=== PATIENT | female | born 1980 | race Caucasian/White ===

== ENCOUNTER 2017-11-27 07:50 | Outpatient (CLI) | payer BC ==
--- NOTE | 2017-11-27 10:04 | CT ---
CT THORAX WITH CONTRAST CT ABDOMEN WITH CONTRAST CT PELVIS WITH CONTRAST: HISTORY: 37-year-old female with R60.9, R00.2, R14.0, R10.9, R35.8, R64.9 Anemia, palpitations, orthopnea, abdomen pain in female, abdominal distention, edema. COMPARISON: Noncontrast CT of abdomen and pelvis, 05-07-17; and CT of chest, abdomen, and pelvis with contrast 12-07. TECHNIQUE: IV iodinated contrast media: 100 ml Isovue 370 Oral contrast media: Redicat II Single phase scans of thorax, abdomen, and pelvis. FINDINGS: Thorax: Lungs are clear. No pleural effusion or pneumonia. Trachea and main bronchi are patent and clear. No cardiomegaly or pericardial effusion. No mediastinal or hilar lymphadenopathy. Normal thoracic aorta. No interval change in the chest since 12-28-12. Abdomen: Suture lines around proximal stomach. Small volume stomach. Normal liver, abdominal aorta, kidneys, a drenals, pancreas and spleen. Large amount of colonic stool. No ascites or pneumoperitoneum identifie d. Pelvis: Normal urinary bladder. A 2.5 x 2.5 x 2.5 cm round cystic lesion in the right presacral spine, indent ing the right side of the rectum. This cystic mass has moderately thin enhancing parham. There is ques tionably a small amount of free fluid versus edema surrounding this. This right pararectal cyst mass has internal density of 28 HU. It was also not present on the CT of 05-07-17. The uterus is absent. N o destructive osseous lesion identified. No small bowel dilation. No signs of acute colonic diverticu litis. IMPRESSION: 1. Status post bariatric surgery. 2. Normal chest. 3. A 2.5 cm round low attenuation cystic mass in the posterior inferior aspect of the pelvis, in the right presacral space, abutting the rectum, of unknown etiology. 4. Status post hysterectomy. AYDEE Prado POS: [facility]
[2017-11-27] MEDS ORDERED: Iopamidol 370 76% 100 ML VIAL ONE (11:31)
== END 2017-11-27 07:51 | disposition home or self-care (01) ==
LOC: CT 07:50
PROVIDERS: ATTEND Family Medicine
DX: D64.9 Anemia, unspecified (principal); R14.0 Abdominal distension (gaseous); R00.2 Palpitations; R10.9 Unspecified abdominal pain; R60.9 Edema, unspecified; R35.8 Other polyuria; N94.89 Other specified conditions associated with female genital organs and menstrual cycle; Z98.84 Bariatric surgery status; Z90.710 Acquired absence of both cervix and uterus
CPT/HCPCS: 71260; 74177

== ENCOUNTER 2017-12-08 12:52 | Outpatient (CLI) | payer BC ==
--- NOTE | 2017-12-08 14:56 | MRI ---
MRI PELVIS WITHOUT AND WITH CONTRAST: Comparison: CT abdomen/pelvis 11-27-17 History: Right pelvis mass seen on prior CT. Please evaluate further. Technique: Multiplanar, multisequence MRI images were obtained of the pelvis without and with IV cont rast. FINDINGS: The patient's uterus has been removed. Both ovaries remain. One of the ovaries is along the left late ral pelvic sidewall. The other ovary lies lower in the posterior pelvis and is in the exact location where the previously seen hypodensity was present on CT. Normal follicles are seen within both ovarie s. The previously seen hypodense mass in the region of the right ovary on the prior CT is no longer p resent and likely represented a physiologic follicle which has resolved. No suspicious mass is seen i n the pelvis. A small amount of free fluid is seen in the pelvis. The urinary bladder is unremarkable. No marrow signal abnormality is present. No abnormal enhancement is seen. No enlarged pelvic or inguinal lymph nodes are seen. IMPRESSION: Previously seen right pelvic mass representing a physiologic follicle in the right ovary. POS: [facility]
== END 2017-12-08 12:53 | disposition home or self-care (01) ==
LOC: SCSMRI 12:52
PROVIDERS: ATTEND Family Medicine
DX: R19.00 Intra-abdominal and pelvic swelling, mass and lump, unspecified site (principal)
CPT/HCPCS: 72197

== ENCOUNTER 2018-03-08 07:49 | Outpatient (CLI) | payer OTHER ==
--- NOTE | 2018-03-08 09:39 | RAD ---
THORACIC SPINE: Date: 03/08/18 HISTORY: Back pain. Comparison made to thoracic spine of 03/15/13. FINDINGS: Thoracic vertebra maintain normal height and alignment. No compression deformity seen. Disc spaces ar e preserved. Minimal degenerative change. IMPRESSION: Thoracic spine appears unremarkable and unchanged from prior exam. POS: [facility]
--- NOTE | 2018-03-08 09:45 | RAD ---
LUMBAR SPINE 3 VIEWS: Date: 03/08/18 HISTORY: Back pain. FINDINGS: Lumbar vertebra maintain normal height and alignment. There is mild loss of disc space at L1-2 and mi ld degenerative changes at this level. The other lumbar vertebra maintain normal height and alignment. The other disc spaces are preserved. IMPRESSION: Mild loss of disc space and degenerative change at L1-2. POS: [facility]
--- NOTE | 2018-03-08 09:46 | CT ---
CT LUMBAR SPINE: Multiple axial tomograms are obtained through the lumbar spine with multiplanar reconstruction. INDICATION: Back pain. FINDINGS: The lumbar vertebrae maintain normal height and alignment. There are mild degenerative changes noted at the L1-2 disk space. Mild loss of disk height at this level and mild degenerative spurring from the anterior superior corner of the L2 vertebra is noted. Minimal spurring from the anterior inferio r corner of the L1 vertebra is present. No evidence of compression or fracture. The L3, L4, and L5 vertebrae appear unremarkable and maintain normal height and alignment. The disk spaces are preserve d. At L1-2 disk level, there is no evidence of disk bulge or protrusion. No central canal or foraminal stenosis. At L2-3, no significant disk bulge or protrusion. No central canal or foraminal stenosis. At L3-4, a mild disk bulge abuts the anterior thecal sac. No significant central canal or foraminal stenosis. At L4-5, mild disk bulge abuts and mildly flattens the anterior thecal sac. Mild facet hypertrophy. No significant central canal or foraminal stenosis. At L5-S1, mild disk bulge centrally. No significant central canal or foraminal stenosis. No evidence of spondylolisthesis or spondylosis. IMPRESSION: There are degenerative changes noted at the L1-[address] lumbar spine otherwise unremarkable. POS: [facility]
== END 2018-03-08 07:50 | disposition home or self-care (01) ==
LOC: SCSCT 07:49
PROVIDERS: ATTEND Physical Medicine & Rehabilitation
DX: M51.36 Other intervertebral disc degeneration, lumbar region (principal); G89.4 Chronic pain syndrome; M47.896 Other spondylosis, lumbar region
CPT/HCPCS: 72072; 72100; 72131

== ENCOUNTER 2019-06-01 11:21 | Emergency (ER) | payer BC, OTHER ==
--- NOTE | 2019-06-01 12:04 | RAD ---
3 views left shoulder: 06/01/2019 COMPARISON: None HISTORY: Pain FINDINGS: No fracture or dislocation. No radiopaque foreign body or subcutaneous gas. IMPRESSION: No acute findings.
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
--- NOTE | 2019-06-01 12:07 | RAD ---
2 views of the lumbar spine: 06/01/2019 COMPARISON: 03/08/2018 HISTORY: Trauma FINDINGS: Lumbar pedicles appear intact on frontal imaging. The lateral examination demonstrates norm al vertebral body height and alignment. No anterolisthesis or retrolisthesis. No acute fracture identified. Mild lower lumbar spine facet hypertrophy at L4-5 and L5-S1 noted. There is mild irregula rity involving the superior endplate of the L2 vertebral body, as seen on the prior examination. IMPRESSION: Chronic findings as detailed above. No acute findings.
== END 2019-06-01 12:17 | disposition home or self-care (01) ==
LOC: SCSER 11:21
DX: S39.012A Strain of muscle, fascia and tendon of lower back, initial encounter (principal); S46.912A Strain of unspecified muscle, fascia and tendon at shoulder and upper arm level, left arm, initial encounter; S76.012A Strain of muscle, fascia and tendon of left hip, initial encounter; G43.909 Migraine, unspecified, not intractable, without status migrainosus; F17.210 Nicotine dependence, cigarettes, uncomplicated; Z79.899 Other long term (current) drug therapy; Y04.8XXA Assault by other bodily force, initial encounter
CPT/HCPCS: 72100; 72170